=== PATIENT | male | born 1945 | race Caucasian/White ===

== ENCOUNTER 2021-12-08 07:54 | Outpatient (CLI) | payer MEDICARE, SELFPAY ==
--- NOTE | 2021-12-08 08:15 | TELERAD_ITS ---
[address] [address] Phone:?[phone] Fax:?[phone] Referring Physician Information: Lindy Baker [address] [facility] [address] Phone:?[phone] Fax:?[phone] Patient:?Taiwo Sutherland D.O.B:?1945 Sex:?Male Phone:?[phone] [facility] MRN:?[id number] Exam Date:?12/08/2021 ? EXAM: MRI of the LEFT SHOULDER, without contrast CLINICAL INFORMATION: Male, 76 years old, with left shoulder pain. INDICATION: Evaluate shoulder pain. PRIOR SURGERY: None reported. PLAIN FILMS: None available. COMPARISONS: No prior MRIs available. TECHNICAL INFORMATION: Using a 1.5T MR scanner and a localizing surface coil: coronal obliques: PD, T2, STIR sagittal obliques: PD, T2 axials: PD, T2 SEDATION: None CONTRAST: None FINDINGS: Bones: Proximal humerus: No fracture or marrow edema/pathology. No humeral Hill-Sachs or reverse Hill-Sachs lesion/impaction or contusion. Glenoid: No fracture or marrow edema/pathology. No osseous Bankart lesion. Rotator cuff and muscles/tendons: Supraspinatus: Full width, full-thickness tear of supraspinatus, with tendon retraction to the mid humeral head and grade 2 muscle atrophy. Infraspinatus: Mild to moderate infraspinatus tendinopathy with a 1.2 x 2.1 cm area of full-thickness tearing of the anterior distal tendon fibers, but more generalized intermediate grade partial-thickness articular surface tearing (coronal T2 series 6 images 11 & 14 and sagittal T2 series 8 image 4). Teres minor: No tendinopathy, tear or atrophy. Subscapularis: Mild to moderate tendinopathy with essentially full-thickness tearing involving the lesser tuberosity attachment of subscapularis, with retraction of the torn tendon fibers to the medial aspect of the humeral head (axial PD series 3 image 16 and sagittal T2 series 8 image 14). The muscular attachment is intact more inferiorly. Deltoid: No strain or atrophy. Coracoacromial arch: Acromion morphology: The acromion has type II morphology with a 2.1 x 1.2 cm mild anterior subacromial enthesophyte/spur. No os acromiale. Acromiohumeral space: The acromiohumeral space measures 5.5 mm at its narrowest point. Coracohumeral space: The coracohumeral space is within normal limits. Acromioclavicular joint: Joint: Moderate AC joint arthropathy, with approximately 3 mm of inferior osteophytosis, which encroaches upon the underlying supraspinatus (sagittal PD series 7 image 15 and coronal T2 series 6 image 11). Ligaments: Coracoclavicular ligaments are intact. Bursae: Subacromial-subdeltoid: Mild subacromial-subdeltoid bursal fluid, which reflects attenuation from the full-thickness rotator cuff tear. Subcoracoid: No convincing subcoracoid bursal thickening/bursitis. Biceps tendon: Nonvisualization of the intra-articular biceps long head tendon. Glenohumeral joint: Effusion/cyst: Small glenohumeral joint effusion. Articular cartilage: Humeral head & glenoid: Mild generalized thinning of the articular cartilage throughout the glenohumeral joint, with minimal marginal osteophytosis. Loose bodies: No discrete intra-articular body within the joint. Labrum:?Circumferential degeneration fraying of the labrum, which is of doubtful clinical significance. Inferior glenohumeral ligament/axillary pouch:?Intact. The axillary pouch is normal in thickness and signal. No evidence of adhesive capsulitis or capsular injury. IMPRESSION: 1. Full-width, full-thickness tear of supraspinatus, tendon retraction to the mid humeral head and grade 2 muscle atrophy. This tear extends to involve the anterior one third of infraspinatus as well. 2. Findings in keeping with a biceps [place] injury: -Mild-moderate subscapularis tendinopathy with high-grade articular/interstitial tearing involving the lesser tuberosity attachment, with tendon retraction to the medial aspect of the humeral head. -Full-thickness avulsion/disruption of the biceps long head tendon, significant tendon retraction. 3. Slight approaching mild osteoarthritis of the glenohumeral joint. 4. Mild narrowing of the acromiohumeral space with mild subacromial-subdeltoid bursal fluid and a 2.1 x 1.2 cm mild anterior subacromial enthesophyte/spur. Additionally, inferior osteophytosis from moderate AC joint arthropathy effaces the underlying supraspinatus. 5. Circumferential degeneration and fraying of the labrum, which is of doubtful clinical significance. BC Electronically signed on 12/08/2021 12:02:00 PM by Navneet Stephens M.D.
== END 2021-12-08 07:55 | disposition home or self-care (01) ==
LOC: MRI 07:58
PROVIDERS: Visit Provider Physician Assistant
DX: M25.512 Pain in left shoulder (principal); M75.102 Unspecified rotator cuff tear or rupture of left shoulder, not specified as traumatic; S43.492A Other sprain of left shoulder joint, initial encounter; M75.52 Bursitis of left shoulder; M25.412 Effusion, left shoulder
CPT/HCPCS: 73221

== ENCOUNTER 2022-03-11 08:25 | Day surgery (SDC) | payer MEDICARE, SELFPAY ==
[2022-03-11] VITALS (17 sets, daily range): BP systolic 99–163; BP diastolic 48–85; PULSE 70–93; RESP 16; TEMP 36.1–36.4; O2SAT 89–100; BMI 31.7
[2022-03-11] MEDS: ACETAMINOPHEN 500 MG TABLET 1000 MG PO (09:05)
[2022-03-11] MEDS: OXYCODONE (CR) 10 MG TAB.ER.12H PO (09:05)
[2022-03-11] MEDS: LACTATED RINGERS 1000 ML 1,000 ML 100 ML IV (09:25)
[2022-03-11] MEDS: SODIUM CHLORIDE 0.9 % (FLUSH) 10 ML SYRINGE IVF (09:25)
[2022-03-11] MEDS: MIDAZOLAM HCL 1 MG/ML inj IVP (09:45)
[2022-03-11] MEDS: fentaNYL 100 MCG/2 ML inj IVP (09:45)
--- NOTE | 2022-03-11 09:53 | SUR.PREOP ---
TIME?OUT:?0944 PT/RN/MDA?VERIFICATION?OF?SURGICAL?SITE left shoulder,?PROCEDURE SC nerve block,?AND?CONSENT OBTAINED?PRIOR?TO?INVASIVE?PROCEDURE.
[2022-03-11] MEDS: CEFAZOLIN 2 GM INJ IVP (10:10)
--- NOTE | 2022-03-11 10:26 | P.NB_ITS ---
Nerve Block Nerve Block Date Seen: 03/11/22 Type of block requested by surgeon for post-operative analgesia: interscalene Side: left Time out performed: Yes Verification of patient name: Yes Verification of date of : Yes Site marking: site marked Name of person performing procedure: Sandeep Assistants, if any: Blayne Continuous monitoring Was continuous monitoring of O2 sat, B/P, analog ic design engineer, recorded every 15 minutes?: Yes Procedure Checklist: sterile prep, needles and gloves Ultrasound guided. Images saved: Yes Medications given in 5ml increments after negative aspiration: Ropivicaine %: 0.5 mL: 20 Needle gauge: 22 Decadron (mg): 10 Precedex (mcg): 25 Patient tolerated procedure well: Yes Block Charges Block Charge (with Pro Fee): Brachial Plexus Use of Ultrasound Machine for Block: Yes- US Guidance/pain block
[2022-03-11] MEDS: SODIUM CHLORIDE IRRIG SOLUTION 3,000 ML, EPINEPHrine 1 MG IRRIGATION (11:01)
--- NOTE | 2022-03-11 11:22 | PM.ORPRC ---
Procedure Note Date of procedure: 03/11/22 Procedure: SURGEON: Bebo Dc MD CLINCHING MACHINE OPERATOR: KRISTAN Quinones PREOPERATIVE DIAGNOSIS: Left shoulder rotator cuff tear, AC joint arthrosis POSTOPERATIVE DIAGNOSIS: Left shoulder rotator cuff tear, AC joint arthrosis NAME OF OPERATION: Left shoulder arthroscopic subacromial decompression, distal clavicle excision, mini open rotator cuff repair ANESTHESIA: Supraclavicular block plus general endotracheal ESTIMATED BLOOD LOSS: 5 mL COMPLICATIONS: None SPECIMENS: None DRAINS: None PREOPERATIVE ANTIBIOTICS: Ancef 2 grams INDICATIONS: The patient is a 76-year-old male with a history of left shoulder pain secondary to the above diagnoses. Despite appropriate non operative management, they continue to have symptoms. Operative intervention was recommended. The risks, benefits and expected outcomes were discussed in detail. These included but were not limited to: Infection, bleeding, injury to blood vessel or nerve, venous thromboembolism. All questions were answered to their satisfaction. PROCEDURE: A supraclavicular block was placed by Anesthesia. General anesthesia was administered. The patient was placed in the high beach chair position. The left shoulder was prepped and draped in the usual sterile fashion. The glenohumeral joint was infiltrated with 20 mL of normal saline with epinephrine. The posterior portal was established, the arthroscope was introduced. The anterior portal was established, Diagnostic arthroscopy was performed with findings as follows: The biceps is torn and retracted out of the field of view. The labrum has significant degenerative tearing throughout. Articular surfaces on the humeral head and glenoid are normal. There are no loose bodies. There is a large, full-thickness tear of the supra and infraspinatus. The labrum was debrided with the shaver. The arthroscope was placed in the subacromial space, the lateral portal was established. The Arthrex Trappe was used to dissect the acromion free. The CA ligament was recessed off the anterior acromion, the AC joint was exposed. The acromioplasty was performed with the bur in the posterior portal. The bur was then placed in the lateral portal and the lateral and anterior aspect of the acromion were resected. The undersurface of the distal clavicle was resected through the lateral portal. Finally, the bur was placed in the anterior portal and the remainder of the distal clavicle was resected for a total of 10 mm. An accessory anterolateral portal was placed. The subacromial/subdeltoid bursa was aggressively debrided. There is a full-thickness tear of the supra and infraspinatus with retraction. However, the cuff is freely mobile. Arthroscopic instruments were removed. The accessory anterolateral portal was extended proximally and distally, subcutaneous dissection was taken with electrocautery to the deltoid. The deltoid was divided in line with its fibers. The static retractor was placed. The subacromial/subdeltoid bursa was debrided with the Crouch scissors. The greater tuberosity was debrided to punctate bleeding bone using the arthroscopic bur. Two Arthrex BioComposite SwiveLock anchors were placed just off the articular surface. Both limbs of the FiberWire and fiber tape were passed using the scorpion. A fiber link was placed in the leading edge of the rotator cuff x2. We tied the 2 central FiberWire sutures over the rotator cuff. We then proceeded with a lateral row of SwiveLock anchors x 2 crossing the FiberTape and incorporating the FiberWire and fiber link into each lateral row anchor. This provides an anatomic, watertight repair of the rotator cuff. There is no tension on the repair with the shoulder at 0? abduction. The wound was irrigated with normal saline off the pump. The deltoid was repaired with an 0 Vicryl in an interrupted [id number] fashion. Subcutaneous tissues were closed with a 3-0 Vicryl. Skin was closed with a 3-0 Monocryl in a subcuticular fashion. A dry dressing, polar care and sling were applied. Sponge and needle counts were correct x2. The patient tolerated the procedure well. There were no apparent complications. They were carefully transferred to the hospital bed and taken to the postanesthesia care unit in satisfactory condition. PLAN: The patient will be discharged to home. No active range of motion of the shoulder will be allowed for 6 weeks postoperatively. They can work on active range of motion of the elbow, wrist and fingers. They will follow up in the office next week for a wound check and an AP and transscapular Y-view of the shoulder prior to being seen.
--- NOTE | 2022-03-11 14:05 | SUR.PHASEII ---
Patient has had trouble keeping oxygen sats above 90%. Has been off o2 for 15 minutes and oxygen stays 90-91%. Patient states he has had low saturation since having Covid 2 years ago.
--- NOTE | 2022-03-11 14:35 | SUR.PHASEII ---
Toms , Jagruti, came in to get instructions for home care. She denied any questions regarding his care. She stated they have a pulse oximeter at home to monitor oxygen saturation.
--- NOTE | 2022-03-11 15:48 | W.ANESCHARGE ---
Anesthesia Charges Start Date/Time Anesthesia Start Date: 03/11/22 Anesthesia Start Time: 09:52 Stop Date/Time Anesthesia Stop Date: 03/11/22 Anesthesia Stop Time: 11:48 Summary Emergency: No Extremes of Age: Over 70-CPT [address]
--- NOTE | 2022-03-11 16:52 | W.ANESCHARGE ---
Anesthesia Charges Start Date/Time Anesthesia Start Date: 03/11/22 Anesthesia Start Time: 09:52 Stop Date/Time Anesthesia Stop Date: 03/11/22 Anesthesia Stop Time: 11:48 Summary Emergency: No
--- NOTE | 2022-03-19 14:24 | SUR.PREOP ---
Pre-op chart signed off for Ck RN based on into OR time.
== END 2022-03-11 14:37 | disposition home or self-care (01) ==
PROVIDERS: PCP Internal Medicine; Visit Provider Orthopaedic Surgery
PROC: (CPT 23412; principal; 2022-03-11 10:30)
DX: M75.122 Complete rotator cuff tear or rupture of left shoulder, not specified as traumatic (principal); M19.012 Primary osteoarthritis, left shoulder
CPT/HCPCS: 29826; 29824; 23412; 01630; 64415; 76942; 99100; A9270; C1713; J0171; J0330; J0690; J1100; J2250; J2370; J2405; J2704; J2795; J3010; J7120

== ENCOUNTER 2024-05-22 08:18 | Day surgery (SDC) | payer MEDICARE, SELFPAY ==
[2024-05-22] VITALS (8 sets, daily range): BP systolic 114–143; BP diastolic 58–100; PULSE 68–83; RESP 16–20; TEMP 36.2–36.3; O2SAT 90–93; BMI 29.0
[2024-05-22] MEDS: OXYCODONE (CR) 10 MG TAB.ER.12H PO (09:05)
[2024-05-22] MEDS: ACETAMINOPHEN 500 MG TABLET 1000 MG PO (09:05)
[2024-05-22] MEDS: SODIUM CHLORIDE 0.9 % (FLUSH) 10 ML SYRINGE IVF (09:20)
[2024-05-22] MEDS: MIDAZOLAM HCL 1 MG/ML inj IVP (09:27)
[2024-05-22] MEDS: fentaNYL 100 MCG/2 ML inj IVP (09:28)
--- NOTE | 2024-05-22 09:29 | SUR.PREOP ---
TIME?OUT:?925 PT/RN/MDA?VERIFICATION?OF?SURGICAL?SITE,?PROCEDURE,?AND?CONSENT OBTAINED?PRIOR?TO?INVASIVE?PROCEDURE. all in agreement
[2024-05-22] MEDS: 0.9 % SODIUM CHLORIDE 500 ML 500 ML 100 ML IV (09:30)
--- NOTE | 2024-05-22 10:08 | SUR.PREOP ---
pts BG reading 208, at 0800. Pt took at home with his monitoring system.
[2024-05-22] MEDS: CEFAZOLIN 2 GM INJ IVP (10:25)
--- NOTE | 2024-05-22 10:57 | W.PM.NB ---
Nerve Block Nerve Block Time Seen by Provider: 09:30 Date Seen: 05/22/24 Type of block requested by surgeon for post-operative analgesia: axillary Side: left Time out performed: Yes Verification of patient name: Yes Verification of date of : Yes Site marking: site marked Name of person performing procedure: Sandeep Continuous monitoring Was continuous monitoring of O2 sat, B/P, cardiac nurse practitioner, recorded every 15 minutes?: Yes Procedure Checklist: sterile prep, needles and gloves Ultrasound guided. Images saved: Yes Medications given in 5ml increments after negative aspiration: Ropivicaine %: 0.5 mL: 20 Needle gauge: 22 Patient tolerated procedure well: Yes Additional comments: Needle noted adjacent to nerve Block Charges Block Charge (with Pro Fee): Brachial Plexus Use of Ultrasound Machine for Block: Yes- US Guidance/pain block
--- NOTE | 2024-05-22 10:58 | W.ANESCHARGE ---
Anesthesia Charges Start Date/Time Anesthesia Start Date: 05/22/24 Anesthesia Start Time: 10:09 Stop Date/Time Anesthesia Stop Date: 05/22/24 Anesthesia Stop Time: 12:21 Summary Extremes of Age - Over 70 or under 1: MDA
--- NOTE | 2024-05-22 12:26 | W.ANESCHARGE ---
Anesthesia Charges Start Date/Time Anesthesia Start Date: 05/22/24 Anesthesia Start Time: 10:09 Stop Date/Time Anesthesia Stop Date: 05/22/24 Anesthesia Stop Time: 12:21 Summary Extremes of Age - Over 70 or under 1: CLINICAL DIETITIAN
--- NOTE | 2024-05-22 12:43 | P.ORPRC_ITS ---
Procedure Note Date of procedure: 05/22/24 Procedure: PREOPERATIVE DIAGNOSIS: Left thumb CMC joint osteoarthritis, STT joint arthritis POSTOPERATIVE DIAGNOSIS: Left thumb CMC joint osteoarthritis, STT joint arthritis NAME OF OPERATION: Left thumb CMC arthroplasty (LRTI), resection of the base of the trapezoid SURGEON: Bebo Dc MD MOTOR BIKE MECHANIC: Subha Diaz PA-C ANESTHESIA: Axillary block plus monitored anesthesia care ESTIMATED BLOOD LOSS: 0 mL COMPLICATIONS: None SPECIMENS: None DRAINS: None PREOPERATIVE ANTIBIOTICS: Ancef 2 grams INDICATIONS: The patient is a 78-year-old with a history of left thumb CMC joint osteoarthritis. Despite appropriate nonoperative management, including activity modification, antiinflammatories, [id number] pain medication, bracing, occupational therapy, and injections they continue to have pain and disability. Operative intervention was offered. The risks, benefits and expected outcomes were discussed in detail. These included but were not limited to: Infection, bleeding, injury to blood vessel or nerve, venous thromboembolism. All questions were answered to their satisfaction. Use of an daycare assistant was necessary for patient positioning, soft tissue retraction, wound closure and dressing and splint application. PROCEDURE: An axillary block was placed by anesthesia. The patient was placed supine on the operating room table. IV sedation was administered. The left upper extremity was prepped and draped in the usual sterile fashion. The limb was exsanguinated with the Jones bandage. The pneumatic tourniquet was inflated to 250 mmHg. A longitudinal incision was made just dorsal to the 1st dorsal compartment at the base of the thumb. Subcutaneous dissection was taken with tenotomy scissors. Several small crossing veins were cauterized and divided. The base of the thumb metacarpal was exposed. The CMC joint capsule was incised longitudinally. Subperiosteal dissection of the trapezium was carried both dorsally and volarly. Likewise, the base of the thumb metacarpal was subperios teally exposed. The radial sensory nerve was encountered and was carefully protected throughout the case. The trapezium was dissected free with the 15 blade and the [place] elevator. It was removed piecemeal with the rongeur. Attention was then turned to the FCR graft harvest. A transverse incision was made at the musculotendinous junction of the FCR in the volar forearm. Subcutaneous dissection was taken with tenotomy scissors to the tendon. The tendon was freed up from the muscle fibers and was divided transversely. We then pulled the tendon graft into the distal incision at the base of the thumb. The base of trapezoid was resected with the oscillating saw for a total of 2 mm. Osteophytes off of the dorsum of trapezoid were resected with the rongeur. We placed a 2-0 FiberWire suture in the deep capsule. A 2.8 mm socket was drilled on the radial side of the base of the index finger metacarpal. A loop of labral tape was placed in the socket and secured with a 3 mm x 8 mm BioComp osite anchor. A guide pin was drilled through the dorsum of the base of the thumb metacarpal exiting at the volar peak of the base of thumb metacarpal. A 5 mm tunnel was drilled. The tendon passer was placed through the tunnel. We pulled the tendon graft and both limbs of the labral tape into the tunnel. We maximally tensioned the graft and then placed a 4.75 x 15 mm Arthrex BioComposite tenodesis screw just distal to the graft. The graft was then pulled proximally and was secured to the dorsal bone of the base of the metacarpal with 2-0 FiberWire suture x2. We then used our previously placed 2-0 FiberWire suture in the deep capsule and folded the graft back and forth over these sutures. The graft was placed in the depth of the wound and this FiberWire suture was tied over the top to secure it in position. There was no hyperextension of the thumb MP joint. Therefore, we did not transfer the EPB. The wound was irrigated with normal saline. The capsule was closed with a 3-0 Vicryl in an interrupted [id number] fashion. Wounds were closed with 3-0 Vicryl and a 4-0 Monocryl. Glue was used to seal the skin. A dry dressing and short-arm thumb spica splint were applied, the tourniquet was released. Sponge and needle counts were correct x 2. The patient tolerated the procedure well. There were no apparent complications. They were carefully transferred to the hospital bed and taken to the postanesthesia care unit in satisfactory condition. PLAN: The patient will be discharged to home. They will work on ice and elevation of the hand. They will follow up in the office next week for wound check and three views of the thumb, out of the splint prior to being seen, in preparation for occupational therapy and a thumb spica brace.
--- NOTE | 2024-05-22 13:33 | SUR.PHASEII ---
Left arm dressing c/d/i, arm in sling. pt tolerated juice and toast. Denies pain. wheelchair out to car with .
== END 2024-05-22 13:30 | disposition home or self-care (01) ==
LOC: OR 08:21
PROVIDERS: PCP Internal Medicine; Visit Provider Orthopaedic Surgery
PROC: (CPT 25447; principal; 2024-05-22 09:45)
DX: M18.12 Unilateral primary osteoarthritis of first carpometacarpal joint, left hand (principal); M19.032 Primary osteoarthritis, left wrist; G89.18 Other acute postprocedural pain
CPT/HCPCS: 25447; 01830; 64415; 76942; 99100; A4580; A9270; C1713; J0690; J1100; J2250; J2405; J2704; J2795; J3010; J7030

== ENCOUNTER 2024-10-08 08:36 | Emergency (ER) | payer MEDICARE, SELFPAY ==
[2024-10-08] VITALS (11 sets, daily range): BP systolic 77–130; BP diastolic 49–69; PULSE 80–107; RESP 16–21; TEMP 36.6; O2SAT 92–96; BMI 28.3
--- NOTE | 2024-10-08 09:06 | ED.GENADULT ---
HPI - General Adult General Date Seen: 10/08/24 Chief complaint: Unspecified Complaint, Adult Stated complaint: was triaged- BP, unitary track and other things Time Seen by Provider: 10/08/24 08:54 Source: patient Mode of arrival: ambulatory Limitations: no limitations History of Present Illness HPI narrative: Patient is an 79-year-old male with history of diabetes, high cholesterol, hypertension presenting to the emergency department for concerns of a UTI and fluctuations in his blood pressure and pulse. He states everything started about a month ago when he was diagnosed with diverticulitis. He started on antibiotics which he states was a 10 day course. Does not remember which antibiotics he was on. Finish the medications a couple weeks ago. States while he was on the antibiotics he started having dysuria and cloudy appearing urine. Symptoms have not been getting better. Has been checking his blood pressure frequently and states yesterday he checked it multiple times and it frequently would be in the 70 systolic. States over the past few weeks he also has felt less stable on his feet. Has not felt like he was going to pass out but always feels like he needs the hold on the something when he is walking. This is abnormal for him. Has not noticed any fevers or chills. Had 1 episode of nausea yesterday but no further nausea or vomiting. States the pain in his left lower quadrant has improved significantly. Has not noticed any suprapubic pain. Does not always feel like he fully empties his bladder. Denies any other concerns at this time. Related Data Home Medications ?Medication ?Instructions ?Recorded ?Confirmed colchicine 0.6 mg capsule 0.6 mg PO DAILY 12/14/21 10/08/24 multivitamin 1 tab PO DAILY 12/14/21 10/08/24 omega 9-oca-lut-fish oil 100 1 cap PO DAILY 12/14/21 10/08/24 mg-160 mg-1,000 mg capsule (Fish Oil) empagliflozin 25 mg tablet 25 mg PO QAM 05/16/23 10/08/24 (Jardiance) insulin NPH isoph U-100 human 100 25 unit subcut BID 05/16/23 10/08/24 unit/mL (3 mL) subcutaneous pen (Novolin N FlexPen) blood sugar diagnostic (AirInSpaceTouch #10 ea 04/11/24 09/19/24 Ultra Test strips) blood-glucose meter ([employer] #1 ea 04/11/24 09/19/24 Ultra2 Meter) lisinopril 10 mg tablet 10 mg PO DAILY 04/11/24 10/08/24 rosuvastatin 20 mg tablet 20 mg PO QPM 04/11/24 10/08/24 aspirin 325 mg tablet 325 mg PO DAILY 05/21/24 10/08/24 Allergies Allergy/AdvReac Type Severity Reaction Status Date / Time sulindac Allergy Intermediate abd cramps Verified 10/08/24 08:46 allopurinol Allergy Unknown Verified 10/08/24 08:46 metformin Allergy Unknown Verified 10/08/24 08:46 naproxen Allergy Unknown leg cramps Verified 10/08/24 08:46 NSAIDS (Non-Steroidal Allergy Unknown Verified 10/08/24 08:46 Anti-Inflamma Review of Systems Status of ROS: Reports: 10 or more systems reviewed and unremarkable except as noted in History and below [facility] Medical History Osteoarthritis of left thumb ?M18.12 - Unilateral primary osteoarthritis of first carpometacarpal joint, left hand (ICD-10) Low back pain ?M54.50 - Low back pain, unspecified (ICD-10) Sensorineural hearing loss, bilateral ?H90.3 - Sensorineural hearing loss, bilateral (ICD-10) Hyperkalemia ?E87.5 - Hyperkalemia (ICD-10) Hemorrhoids ?K64.9 - Unspecified hemorrhoids (ICD-10) Diverticulosis of colon ?K57.30 - Diverticulosis of large intestine without perforation or abscess without bleeding (ICD-10) Dermatitis, contact ?L25.9 - Unspecified contact dermatitis, unspecified cause (ICD-10) Degenerative disc disease, cervical ?M50.30 - Other cervical disc degeneration, unspecified cervical region (ICD-10) Basal cell carcinoma ?C44.91 - Basal cell carcinoma of skin, unspecified (ICD-10) CKD (chronic kidney disease) stage 2, GFR 60-89 ml/min ?N18.2 - Chronic kidney disease, stage 2 (mild) (ICD-10) Hyperlipidemia ?E78.5 - Hyperlipidemia, unspecified (ICD-10) Bilateral carotid artery stenosis ?I65.23 - Occlusion and stenosis of bilateral carotid arteries (ICD-10) CVA (cerebral vascular accident) (07/30/23) ?I63.9 - Cerebral infarction, unspecified (ICD-10) GERD (gastroesophageal reflux disease) ?K21.9 - Gastro-esophageal reflux disease without esophagitis (ICD-10) Squamous cell carcinoma Hypertension ?I10 - Essential (primary) hypertension (ICD-10) Gout ?M10.9 - Gout, unspecified (ICD-10) Diabetes ?E11.9 - Type 2 diabetes mellitus without complications (ICD-10) COPD (chronic obstructive pulmonary disease) ?J44.9 - Chronic obstructive pulmonary disease, unspecified (ICD-10) Surgical History History of arthroplasty of finger of left hand (05/22/24) ?Z96.692 - Finger-joint replacement of left hand (ICD-10) History of cataract extraction ?Z98.49 - Cataract extraction status, unspecified eye (ICD-10) History of tonsillectomy ?Z90.89 - Acquired absence of other organs (ICD-10) History of arthroplasty of finger of right hand (01/27/23) ?Z96.691 - Finger-joint replacement of right hand (ICD-10) History of repair of aneurysm of abdominal aorta using endovascular stent graft (07/31/23) ?Z95.828 - Presence of other vascular implants and grafts (ICD-10) History of nasal surgery (07/21/11) ?Z98.890 - Other specified postprocedural states (ICD-10) History of ear surgery (1974) ?Z98.890 - Other specified postprocedural states (ICD-10) Hx of cholecystectomy (10/22/09) ?Z90.49 - Acquired absence of other specified parts of digestive tract (ICD-10) S/P right knee arthroscopy (01/06/15) ?Z98.890 - Other specified postprocedural states (ICD-10) H/O arthroscopy of shoulder (03/11/22) ?Z98.890 - Other specified postprocedural states (ICD-10) Social History Narrative: former smoker Smoking Status: Former smoker What tobacco products do you use: cigarettes Smoking quit date/years: >15 years ago Do you use any of these nicotine containing products: None Second hand tobacco smoke exposure: No How often do you have a drink containing alcohol: never AUDIT-C Alcohol total score: 0 Non-prescribed substance use: denies use Caffeine: Yes Exam Narrative: Exam Narrative: Patient is an 79-year-old male presenting to the emergency department for concerns of a UTI and unstable blood pressures. His vital signs here in the emergency department have been normal. States his blood pressures at home have been intermittently in the 70s systolic. We will do some orthostatic blood pressures. He does not appear to be dehydrated at this time and states he is eating and drinking normally. Is not having any abdominal tenderness. At this time I do not believe a CT scan is necessary by will check a urinalysis, CBC, CMP, magnesium. Will also do EKG and troponin. Will do a postvoid bladder scan to see if he is emptying his bladder Const: Vital Signs, click to edit/add: Vital Signs - 24 hr 10/08/24 08:39 10/08/24 10:10 10/08/24 10:12 Temperature 98 F Pulse Rate 80 Pulse Rate [Right Pulse Oximeter] 90 Pulse Rate [orthos tatic lying] 93 Pulse Rate [orthos tatic sitting] 100 Pulse Rate [orthos tatic standing] 98 Respiratory Rate 18 17 Blood Pressure 104/58 L Blood Pressure [Ri ght Upper Arm] 130/69 Blood Pressure [or thostatic lying] 114/61 Blood Pressure [or thostatic sitting] 91/60 Blood Pressure [or thostatic standing ] 77/49 L Pulse Oximetry 96 92 Oxygen Delivery Me thod Room Air Room Air 10/08/24 11:27 Temperature Pulse Rate Pulse Rate [Right Pulse Oximeter] Pulse Rate [orthos tatic lying] 107 H Pulse Rate [orthos tatic sitting] 104 H Pulse Rate [orthos tatic standing] 98 Respiratory Rate Blood Pressure Blood Pressure [Ri ght Upper Arm] Blood Pressure [or thostatic lying] 101/55 L Blood Pressure [or thostatic sitting] 97/55 L Blood Pressure [or thostatic standing ] 114/61 Pulse Oximetry Oxygen Delivery Me thod Course Vital Signs Vital signs: Initial Vital Signs Temperature 98 F 10/08/24 08:39 Temperature Source Temporal Artery Scan 10/08/24 08:39 Pulse Rate 90 10/08/24 08:39 Pulse Rhythm Regular 10/08/24 08:39 Pulse Strength 3+ Normal 10/08/24 08:39 Respiratory Rate 18 10/08/24 08:39 Blood Pressure 130/69 10/08/24 08:39 Blood Pressure Mean 89 10/08/24 08:39 Blood Pressure Position Sitting 10/08/24 08:39 Pulse Oximetry 96 10/08/24 08:39 Oxygen Delivery Method Room Air 10/08/24 08:39 Vital Signs Temperature 98 F 10/08/24 08:39 Pulse Rate 90 10/08/24 08:39 Respiratory Rate 18 10/08/24 08:39 Blood Pressure 130/69 10/08/24 08:39 Pulse Oximetry 96 10/08/24 08:39 Oxygen Delivery Method Room Air 10/08/24 08:39 Temperature 98 F 10/08/24 08:39 Pulse Rate 107 H 10/08/24 11:27 Respiratory Rate 17 10/08/24 10:10 Blood Pressure 101/55 L 10/08/24 11:27 Pulse Oximetry 92 10/08/24 10:10 Oxygen Delivery Method Room Air 10/08/24 10:10 Medications Administered Medications: Generic Name Dose Route Start Last Admin Trade Name Freq PRN Reason Stop Dose Admin Heparin Sodium/Dextrose 25,000 unit in 500 mls @ 0 mls/hr 10/08/24 12:30 10/08/24 12:44 Heparin IV 1,000 unit/hr .Q0M ERROL 20 mls/hr Administration Protocol Per Protocol Discontinued Medications Generic Name Dose Route Start Last Admin Trade Name Freq PRN Reason Stop Dose Admin Heparin Sodium (Porcine) 4,000 unit 10/08/24 12:30 10/08/24 12:44 Heparin 5,000 Unit/0.5 Ml Inj IVP 10/08/24 12:31 4,000 unit ONCE ONE Administration Lactated Ringer's 1,000 mls @ 1,000 mls/hr 10/08/24 10:02 10/08/24 11:12 Lactated Ringers 1000 Ml IV 10/08/24 11:01 Infused .Q1H ONE Infusion Ceftriaxone Sodium 1 gm/ 100 mls @ 200 mls/hr 10/08/24 10:56 10/08/24 11:58 Sodium Chloride IVPB 10/08/24 10:57 Infused ONCE ONE Infusion Sodium Chloride 1,000 mls @ 1,000 mls/hr 10/08/24 11:30 10/08/24 11:58 0.9 % Sodium Chloride 1000 Ml IV 10/08/24 12:29 Not Given .Q1H ERROL Medical Decision Making MDM Narrative Medical decision making narrative: Patient is an 79-year-old male presenting to the emergency department for concerns of abnormal blood pressures at home and UTI symptoms. Will check urinalysis for signs of UTI. Is not having any abdominal symptoms so I do not believe CT scan is necessary. Will do an EKG and troponin to look at any heart abnormalities. Will also order a CBC, CMP. Lab work returned with a point of care troponin elevated at 6.88. He is not having any chest pain or shortness of breath. EKG shows a trigeminy PACs with some slight elevation after the PAC but otherwise no signs of ST elevations. Does have diffuse T-wave inversions by unsure if these are new or not. Continues to not having any chest pain or shortness of breath. We did orthostatic blood pressures any did become hypotensive. Did get slightly more lightheaded when he stood up. I spoke to him further about this lightheadedness he states he has been having issues with lightheadedness chronically above the past 3 weeks he states he will get more severe flares typically at night. I do want speak to Cardiology due to these elevated troponins. I paged [facility] and they will call me back. I did speak to the nurse who was able of review his records in states he had a normal EF on his ARLET last year and last month had a creatinine of around 1.1 and that is where he has been for quite a while. I did give him 1 L of fluids for this lightheadedness Urinalysis came back positive for UTI. Also has elevated white count at 16. Lactate was ordered and was within normal limits. I did give him Rocephin for his UTI. With everything else going on I did order a BNP. It came back at 5290. Overall is not appear to be in acute heart failure. Repeat orthostatics were normal after the 1 L and at this time I will hold off on a 2 L as I do not want to accidentally fluid overload this patient. He currently is stable. I spoke to Dr. Cuevas up [facility]. He reviewed everything and at this time does not believe the patient is having an acute STEMI. Please is likely demand ischemia his urosepsis and CAROL. He does recommend trending the troponins and do an echocardiogram. Also states lungs patient is not a high bleeding risk to start him on heparin. They have no beds available at [facility] spoke to family and they are agreeable for transfer to [place]. Hospitalist here in [place] does not feel safe keeping him without cardiology house. I did speak to speak to the [place] on-call hospitalist, Dr. Hall, and she accepts the patient for transfer. Lab Data Labs: Lab Results 10/08/24 10/08/24 10/08/24 Range/Units 09:35 09:40 10:40 WBC 16.96 H (4.50-11.00) K/uL RBC 4.91 (4.30-5.90) m/uL Hgb 14.0 (13.5-17.5) gm/dL Hct 42.2 (37.0-53.0) % MCV 86 (80-100) fL MCH 29 (26-34) pg MCHC 33 (32-36) gm/dL RDW Coeff of [place] 15.0 (11.5-15.5) % Plt Count 184 (140-440) K/uL Neut % (Auto) 79.3 H (42.0-72.0) % Lymph % (Auto) 7.7 L (20-44) % Richardson % (Auto) 10.7 (0.0-11.0) % Eos % (Auto) 1.4 (0.0-7.0) % Baso % (Auto) 0.3 (0.0-3.0) % Neut # (Auto) 13.40 H (1.7-7.0) K/uL Lymph # (Auto) 1.30 (0.90-2.90) K/uL Richardson # (Auto) 1.80 H (0.00-0.90) K/UL Eos # (Auto) 0.20 (0.00-0.50) K/uL Baso # (Auto) 0.10 (0.00-0.30) K/uL Abs Immat Gran (auto) 0.10 (0.00-0.30) K/uL Imm/Tot Granulo (auto) 0.6 % Sodium 134 L (135-149) mmol/L Potassium 4.8 (3.6-5.1) mmol/L Chloride 98 (96-114) mmol/L Carbon Dioxide 20 (20-32) mmol/L Anion Gap 16 H (7-15) mEq/L BUN 45 H (7-30) mg/dL Creatinine 1.9 H (0.5-1.5) mg/dL Estimated Creat Clear 30.00 Estimated GFR 35 ml/min Glucose 141 H (60-115) mg/dL Lactate 1.3 (0.5-1.9) mmol/L Calcium 9.2 (8.4-10.6) mg/dL Magnesium 2.2 (1.5-2.6) mg/dL Total Bilirubin 1.0 (0.1-1.5) mg/dL AST 87 H (12-35) U/L ALT 39 (4-50) U/L Alkaline Phosphatase 75 (40-150) U/L Troponin I 8.09 H* 7.36 H* (0.01-0.04) ng/mL NT-Pro-B Natriuret Pep Cancelled 5290 Total Protein 7.4 (6.0-8.3) g/dL Albumin 4.0 (3.3-5.0) g/dL Urine Color Yellow (Yellow) Urine Appearance Slightly Cloudy A (Clear) Urine pH 6.0 (5.0-8.5) Ur Specific [place] 1.010 (1.000-1.030) Urine Protein 2+ A (Negative) Urine Glucose (UA) 2+ A (Negative) Urine Ketones 1+ A (Negative) Urine Blood 2+ A (Negative) Urine Nitrite Negative (Negative) Urine Bilirubin Negative (Negative) Urine Urobilinogen 0.2 (0.2-1.0) Ur Leukocyte Esterase 1+ A (Negative) Urine RBC 10-25 A (0-2) Urine WBC >100 A (0-5) Ur Squamous Epith Cells Few (None-Few) Urine Bacteria Many A (None) Lab Acknowledgement 10/08/24 Range/Units 11:00 WBC (4.50-11.00) K/uL RBC (4.30-5.90) m/uL Hgb (13.5-17.5) gm/dL Hct (37.0-53.0) % MCV (80-100) fL MCH (26-34) pg MCHC (32-36) gm/dL RDW Coeff of [place] (11.5-15.5) % Plt Count (140-440) K/uL Neut % (Auto) (42.0-72.0) % Lymph % (Auto) (20-44) % Richardson % (Auto) (0.0-11.0) % Eos % (Auto) (0.0-7.0) % Baso % (Auto) (0.0-3.0) % Neut # (Auto) (1.7-7.0) K/uL Lymph # (Auto) (0.90-2.90) K/uL Richardson # (Auto) (0.00-0.90) K/UL Eos # (Auto) (0.00-0.50) K/uL Baso # (Auto) (0.00-0.30) K/uL Abs Immat Gran (auto) (0.00-0.30) K/uL Imm/Tot Granulo (auto) % Sodium (135-149) mmol/L Potassium (3.6-5.1) mmol/L Chloride (96-114) mmol/L Carbon Dioxide (20-32) mmol/L Anion Gap (7-15) mEq/L BUN (7-30) mg/dL Creatinine (0.5-1.5) mg/dL Estimated Creat Clear Estimated GFR ml/min Glucose (60-115) mg/dL Lactate (0.5-1.9) mmol/L Calcium (8.4-10.6) mg/dL Magnesium (1.5-2.6) mg/dL Total Bilirubin (0.1-1.5) mg/dL AST (12-35) U/L ALT (4-50) U/L Alkaline Phosphatase (40-150) U/L Troponin I (0.01-0.04) ng/mL NT-Pro-B Natriuret Pep Total Protein (6.0-8.3) g/dL Albumin (3.3-5.0) g/dL Urine Color (Yellow) Urine Appearance (Clear) Urine pH (5.0-8.5) Ur Specific [place] (1.000-1.030) Urine Protein (Negative) Urine Glucose (UA) (Negative) Urine Ketones (Negative) Urine Blood (Negative) Urine Nitrite (Negative) Urine Bilirubin (Negative) Urine Urobilinogen (0.2-1.0) Ur Leukocyte Esterase (Negative) Urine RBC (0-2) Urine WBC (0-5) Ur Squamous Epith Cells (None-Few) Urine Bacteria (None) Lab Acknowledgement Test Added ECG Data Attestation: I personally reviewed and interpreted this ECG as follows: Prior ECG tracings: not available for review Interpretation: Sinus rhythm with a rate of 100 beats per minute, trigeminal PACs, slight elevation seen after the PACs. There is Q-waves seen in the inferior leads that could be signs of an old right-sided NC. otherwise normal axis, normal intervals, no obvious other ST abnormalities. No EKGs to compare with see if these T-wave inversions are new or not Discharge Plan Discharge Clinical Impression: Demand ischemia Sepsis Qualifiers: Sepsis type: sepsis due to unspecified organism Sepsis acute organ dysfunction status: with acute organ dysfunction Severe sepsis acute organ dysfunction type: acute renal failure Acute renal failure type: unspecified Severe sepsis shock status: without septic shock Qualified Code(s): A41.9 - Sepsis, unspecified organism; R65.20 - Severe sepsis without septic shock; N17.9 - Acute kidney failure, unspecified Urinary tract infection Qualifiers: Urinary tract infection type: site unspecified Hematuria presence: without hematuria Qualified Code(s): N39.0 - Urinary tract infection, site not specified Patient Disposition: [facility] Condition: Stable Prescriptions: No Action Novolin N FlexPen 100 unit/mL (3 mL) insulin pen 25 unit subcut BID Jardiance 25 mg tablet 25 mg PO QAM multivitamin Tablet 1 tab PO DAILY Fish Oil 100-160-1,000 mg capsule 1 cap PO DAILY colchicine 0.6 mg capsule 0.6 mg PO DAILY lisinopril 10 mg tablet 10 mg PO DAILY rosuvastatin 20 mg tablet 20 mg PO QPM (DME) blood-glucose meter [OneTouch Ultra2 Meter] Misc See Rx Instructions .ROUTE DIRECTED Qty: 1 Rx Instructions: As directed (DME) OneTouch Ultra Test Strip See Rx Instructions .ROUTE BID Qty: 10 Rx Instructions: As directed aspirin 325 mg tablet 325 mg PO DAILY Follow Up/Referrals: Sabrina Robbins PA-C [Primary Care Provider] - Stand Alone Forms: [employer] [facility] Info Instructions
[2024-10-08 09:51] LABS: Appearance Urine Slightly Cloudy (Clear); Bilirubin Urine Negative (Negative); Blood Urine 2+ (Negative); Color Urine Yellow (Yellow); Glucose Urine 2+ (Negative); Ketones Urine 1+ (Negative); Leukocyte Esterase Urine 1+ (Negative); Nitrite Urine Negative (Negative); Protein Urine 2+ (Negative); Urobilinogen Urine 0.2 (0.2-1.0)
[2024-10-08 10:04] LABS: Basophils Percent Auto 0.3 % (0.0-3.0); Eosinophils Percent Auto 1.4 % (0.0-7.0); Hematocrit 42.2 % (37.0-53.0); Immature Granulocytes Pct Auto 0.6 %; Lymphocytes Percent Auto 7.7 % (20-44); Mean Corpuscular HGB Conc 33 gm/dL (32-36); Mean Corpuscular Hemoglobin 29 pg (26-34); Mean Corpuscular Volume 86 fL (80-100); Monocytes Percent Auto 10.7 % (0.0-11.0); Neutrophils Percent Auto 79.3 % (42.0-72.0); Platelet Count* 184 K/uL (140-440); Red Blood Count 4.91 m/uL (4.30-5.90); White Blood Count* 16.96 K/uL (4.50-11.00)
[2024-10-08] MEDS: LACTATED RINGERS 1000 ML 1,000 ML IV (10:06)
[2024-10-08 10:10] LABS: Slide Review Reflex No
[2024-10-08 10:16] LABS: Bacteria Urine Many; Squamous Epithelial Cell Urine Few (None-Few); WBC Urine >100 (0-5)
[2024-10-08 10:22] LABS: Chloride* 98 mmol/L (96-114); Potassium* 4.8 mmol/L (3.6-5.1); Sodium* 134 mmol/L (135-149)
[2024-10-08 10:25] LABS: Alanine Aminotransferase* 39 U/L (4-50); Alkaline Phosphatase* 75 U/L (40-150); Anion Gap 16 mEq/L (7-15); Aspartate Amino Transferase* 87 U/L (12-35); Blood Urea Nitrogen* 45 mg/dL (7-30); Calcium* 9.2 mg/dL (8.4-10.6); Carbon Dioxide* 20 mmol/L (20-32); Creatinine* 1.9 mg/dL (0.5-1.5); Estimated Glomerular Filt Rate 35 ml/min; Glucose* 141 mg/dL (60-115); Total Protein* 7.4 g/dL (6.0-8.3)
[2024-10-08 10:26] LABS: Magnesium* 2.2 mg/dL (1.5-2.6)
[2024-10-08 10:50] LABS: Lactate Sepsis w/Reflex* 1.3 mmol/L (0.5-1.9)
[2024-10-08 10:54] LABS: Troponin I* 8.09 ng/mL (0.01-0.04)
[2024-10-08 11:21] LABS: NT Pro B Type NatriureticPept* 5290 pg/mL
[2024-10-08] MEDS: cefTRIAXone 1 GM in 0.9 % SODIUM CHLORIDE Mini-bag 100 ML IVPB (11:23)
[2024-10-08 11:25] LABS: Troponin I* 7.36 ng/mL (0.01-0.04)
[2024-10-08] MEDS: HEPARIN 5,000 UNIT/0.5 ML INJ 4000 UNIT IVP (12:44)
[2024-10-08] MEDS: HEPARIN 25,000 UNIT/500 ML BAG 20 UNIT IV (12:44)
--- NOTE | 2024-10-11 10:47 | ED.NURSE ---
Hospitalist ANW called for Ucx results. Microbiology results reviewed with hospitalist, with sensitivities.
== END 2024-10-08 15:20 | disposition short-term general hospital (02) ==
PROVIDERS: Emergency Provider Student in an Organized Health Care Education/Training Program; PCP Internal Medicine
DX: N39.0 Urinary tract infection, site not specified (principal); N17.9 Acute kidney failure, unspecified; R65.20 Severe sepsis without septic shock
CPT/HCPCS: 36415; 51798; 80053; 81001; 83605; 83735; 83880; 84484; 85025; 85610; 85730; 87040; 87086; 87800; 93005; 96365; 99285; J0696; J1644; J7120

== ENCOUNTER 2024-10-08 15:23 | Outpatient (CLI) | payer MEDICARE, SELFPAY | END 2024-10-08 15:24 | disposition home or self-care (01) | LOC: AMB 10-12 14:58 | PROVIDERS: PCP Internal Medicine; Visit Provider Family Medicine | DX: I24.89 Other forms of acute ischemic heart disease (principal); A41.9 Sepsis, unspecified organism; N39.0 Urinary tract infection, site not specified | CPT/HCPCS: A0425; A0434 ==